=== PATIENT | female | born 1990 | race Caucasian/White ===

== ENCOUNTER 2025-03-29 11:39 | Emergency (ER) | payer SELFPAY ==
[2025-03-29 12:04] VITALS: BP 142/87
[2025-03-29 12:26] LABS: % Basophils 0.8 % (0-2); % Immature Granulocytes 0.2 % (0-0.5); % Lymphocytes 29.3 % (20.5-51.1); % Monocytes 9.8 % (1.7-9.3); % Neutrophils 56.9 % (42.2-75.2); Absolute Basophils 0.1 10^3/uL (0-0.2); Absolute Eosinophils 0.3 10^3/uL (0-0.7); Absolute Lymphocytes 2.4 10^3/uL (1.2-3.4); Absolute Monocytes 0.8 10^3/uL (0.1-0.6); Absolute Neutrophils 4.7 10^3/uL (1.4-6.5); Hematocrit 43.9 % (37.0-47.0); Hemoglobin 15.2 g/dL (12.0-16.0); Mean Corp Hgb Conc. 34.6 g/dL (33.0-37.0); Mean Corpuscular Hgb 33.6 pg (27.0-31.0); Mean Corpuscular Volume 96.9 fL (81.0-99.0); Mean Platelet Volume 9.2 fL (7.4-10.4); Nucleated Red Blood Cells % 0 %; Platelet Count 238 10^3/uL (130-400); Red Blood Cell Count 4.53 10^6/uL (4.20-5.40); Red Cell Dist. Width 12.5 % (11.5-14.5); White Blood Cell Count 8.3 10^3/uL (4.8-10.8)
[2025-03-29 12:40] LABS: HCG, Serum Qualitative Screen Negative
[2025-03-29 12:50] LABS: ALT (SGPT) 29 U/L (0-35); AST (SGOT) 26 U/L (14-36); Albumin 4.4 g/dl (3.5-5.0); Alkaline Phosphatase 44 U/L (38-126); Blood Urea Nitrogen 11 mg/dl (7-17); Calcium 9.2 mg/dl (8.4-10.2); Carbon Dioxide 29 mmol/L (22-30); Chloride 106 mmol/L (98-107); Glucose 53 mg/dl (70-99); Potassium 3.7 mmol/L (3.5-5.1); Sodium 139 mmol/L (135-145); Total Bilirubin 0.3 mg/dl (0.2-1.3); Total Protein 6.9 g/dl (6.3-8.2); eGFR > 60.00
--- NOTE | 2025-03-29 13:36 | ED.GENMED ---
History of Present Illness
General
Chief Complaint: Skin Problem
Time Seen by Provider: 03/29/25 13:27
History of Present Illness
History of Present Illness:
Patient is a 34-year-old woman is otherwise healthy presenting to the emergency department with concern for infection. Patient states that a few days ago she noticed an ingrown hair to her vaginal area. Over the past 24 hours the area reddened and
now feels like a marble sized abscess. No fevers or chills. No discharge. No drainage. It is never happened to her before. She did try soaking it without any relief.
Past History
Past History
ED Past Medical History: None
ED Past Surgical History: None
Social History
Tobacco: Non-smoker
Living: with family
Phy Exam
Physical Exam
Physical Exam:
GENERAL: in no acute distress
HEENT: normocephalic, extraocular movements intact
NECK: normal inspection
RESPIRATORY: no respiratory distress
CARDIOVASCULAR: regular rate and rhythm
ABDOMEN/: soft, non-distended, non-tender to palpation, no rebound or guarding
, Chaperoned by RN, no lymphadenopathy, small 3 mm cyst next to the clitoris on the left, no associated redness warmth or streaking of the skin
EXTREMITIES: non-tender, no edema/swelling
NEUROLOGIC: awake and alert, moves all extremities
SKIN: warm
Course
Orders/Labs/Results
Orders:
Orders
03/29/25 12:07
Test Result ONCE
03/29/25 12:12
Complete Blood Count/With Diff Urgent
Comprehensive Metabolic Panel Urgent
HCG, Serum Qualitative Screen Urgent
03/29/25 13:33
Ketorolac [Toradol] 15 mg IM NOW STA
Abnormal Lab Results
03/29/25 03/29/25
12:12 13:36
MCH 33.6 H pg
(27.0-31.0)
Absolute Monos (auto) 0.8 H 10^3/uL
(0.1-0.6)
Monocytes % 9.8 H %
(1.7-9.3)
Glucose 53 L* mg/dl
(70-99)
POC Glucose 112 H mg/dl
(70-99)
03/29/25 12:12
03/29/25 12:12
Vital Signs
Initial and Last Documented VS:
Initial Vital Signs
Temp Pulse Resp BP Pulse Ox
97.8 F 76 17 142/87 100
03/29/25 12:04 03/29/25 12:04 03/29/25 12:04 03/29/25 12:04 03/29/25 12:04
Last Documented Vital Signs
Temp Pulse Resp BP Pulse Ox
97.8 F 76 17 142/87 100
03/29/25 12:04 03/29/25 12:04 03/29/25 12:04 03/29/25 12:04 03/29/25 12:04
MDM/Problems Addressed
Differential Diagnosis Includes:
Patient is a 34-year-old woman presenting to the emergency department with concern for skin infection to her vaginal area. On arrival patient is afebrile. Exam does show a 3 mm cyst next to the clitoris. Given the location and the fact that did
not look overtly infected I did cussed with gynecology who evaluated at bedside. In agreement that it is a small cyst that does not need to be drained. No role for antibiotics given that it does not appear infected. Recommending compress Tylenol
Motrin and follow-up with gynecology if it does not spontaneously resolve.
. Of note she did have blood work completed which showed normal white count. She was hypoglycemic and was given p.o which improved her blood sugar to 112.
*Critical Care Note
Total Time (30-74mins, 75-104mins- exclusive of procedures): Not Applicable
ED Attending Note
-
Portions of this chart may have been created with voice recognition software.� Occasional wrong word or��sound alike� substitutions may have occurred due to the inherent limitations of voice recognition software.
Discharge Plan
Departure
Patient Disposition: Home (Routine Discharge)
Date of Disposition: 03/29/25
Time of Disposition: 15:21
Patient with high blood pressure during this ER visit?: No
Discharge Problem:
Cyst of vagina
Prescriptions:
No Action
No Current Medications
cefuroxime axetil [Ceftin] 500 MG tablet
500 mg PO BID Qty: 14 0RF
Referrals:
West Chapman MD [Family Provider] -
Activity Restrictions/Additional Instructions:
You were seen in the Emergency Department today for a cyst. While you were here we performed blood work, which was reassuring. Please make sure you keep the area dry. You may use an ice pack Tylenol Motrin for pain. Please follow-up with
gynecology if it worsens.
We would like for you to follow up with your primary care physician for further evaluation. If you experience fever, worsening of your symptoms, or develop any other new or concerning symptoms, please return to the Emergency Department immediately.
Please see the attached sheet for additional information.
Interventions
Interventions:
*Risk Screen - Suicide Last Done: 03/29/25 12:06
*General Assessment Last Done: 03/29/25 12:06
*Neglect/Abuse Screening Last Done: 03/29/25 12:06
*ED- Fall Risk Assessment Last Done: 03/29/25 13:08
*ED COVID-19 Vaccine History Last Done: 03/29/25 12:06
Discharge Date and Time
Print Language: FRENCH
[2025-03-29 13:38] LABS: Glucose - Point of Care 112 mg/dl (70-99)
[2025-03-29] MEDS: TORADOL 15 MG IM (13:49)
== END 2025-03-29 15:36 | disposition home or self-care (01) ==
LOC: EMR 11:39
PROVIDERS: Emergency Medicine; EMERGENCY PHYSICIAN Student in an Organized Health Care Education/Training Program; FAMILY PHYSICIAN Family Medicine
DX: N89.8 Other specified noninflammatory disorders of vagina (principal)
CPT/HCPCS: 99284; 96372; 80053; 82962; 84703; 85025